=== PATIENT | male | born 2000 | race Caucasian/White ===

== ENCOUNTER 2022-03-01 01:14 | Emergency (ER) | payer BC, OTHER ==
[~2022-03-01] VITALS: Ht 175.3 cm; Wt 77.1 kg
[~2022-03-01 01:14] MED LIST: ALBU90OI; CRUTCH3 USE; FLUSAL1005; MONT4
== END 2022-03-01 02:11 | disposition home or self-care (01) ==
LOC: ER 01:14
DX: S93.401A Sprain of unspecified ligament of right ankle, initial encounter (principal); X50.1XXA Overexertion from prolonged static or awkward postures, initial encounter; Y93.72 Activity, wrestling; J45.909 Unspecified asthma, uncomplicated; F17.290 Nicotine dependence, other tobacco product, uncomplicated
CPT/HCPCS: 99283; L1906

== ENCOUNTER 2022-12-12 03:51 | Emergency (ER) | payer BC, OTHER ==
[~2022-12-12] VITALS: Ht 175.3 cm; Wt 77.1 kg
[2022-12-12] MEDS ORDERED: KETOROLAC TROMET5 ML LEFTEYE (07:16)
== END 2022-12-12 07:33 | disposition home or self-care (01) ==
LOC: ER 03:51
DX: H18.822 Corneal disorder due to contact lens, left eye (principal); J45.909 Unspecified asthma, uncomplicated; F17.290 Nicotine dependence, other tobacco product, uncomplicated; Z88.5 Allergy status to narcotic agent; X58.XXXA Exposure to other specified factors, initial encounter
CPT/HCPCS: A9270; J7030